=== PATIENT | male | born 1975 | race Caucasian/White ===

== ENCOUNTER 2024-08-25 10:06 | Emergency (ER) | payer OTHER, BC, SELFPAY ==
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
[2024-08-25 10:19] VITALS: BP 136/85; PULSE 71; RESP 18; TEMP 36.8; O2SAT 98
--- OUTSIDE RECORDS SUMMARY | 2024-08-25 10:45 | XMS_ITS | Clinical Summary ---
Author Organization [facility] Address [address] [place] [address] Care Team Providers Care Open Developer Operator Name Role Phone Lorne Phillips DO Primary Care Prov ider Allergies Active Allergy Reactions Criticality Noted Date Comments Amoxicillin Hives,Itching Medium 07/18/2020 Tingling Medications acetylcysteine 600 mg capsule Take daily as directed 0 Active alpha lipoic acid 600 mg tablet Take daily as directed 0 Active ascorbic acid (VITAMIN C) 1,000 mg tablet Take 1 tablet by mouth daily 0 Active cholecalciferol (VITAMIN D-3) 2000 unit capsule Take 1 capsule by mouth daily 0 Active magnesium oxide (MAG-OX) 415 mg (250 mg elemental) tablet Take 1 tab by oral route daily 1 Active milk wfqgxpy-OAJ-fyya el-turmer (Liver Complex) 250-250 mg tablet Take daily as directed 0 Active policosan-inosit ol niac-garlic (Policosanol-Gar lic-Niacin) 5-250-400 mg capsule Take daily as directed 0 Active policosanol combination no.3 30 mg tablet Take daily as directed 0 Active lidocaine (LIDODERM) 5 % Apply 1 patch topically daily for 10 days Remove after 12 hours (need 12 hour patch free period). 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 Gender Identity Not on file Sexual Orientation Not on file Obstetrics History Last Filed Vital Signs Vital Sign Reading Time Taken Comments Blood Pressure 144/99 04/25/2022 10:20 AM MIX MILL TENDER Pulse 102 04/25/2022 10:20 AM MIX MILL TENDER Temperature 36.5 C (97.7 F) 04/25/2022 10:20 AM MIX MILL TENDER Respiratory Rate 16 04/25/2022 10:20 AM MIX MILL TENDER Oxygen Saturation 94% 04/25/2022 10:20 AM MIX MILL TENDER Inhaled Oxygen Concentration - - Weight 136.1 kg (300 lb) 04/25/2022 10:20 AM MIX MILL TENDER Height 185.4 cm (6' 1 ) 04/25/2022 10:20 AM MIX MILL TENDER Body Mass Index 39.58 04/25/2022 10:20 AM MIX MILL TENDER Plan of Treatment Health Maintenance Due Date Last Done Comments Colon Cancer Screening-Colonoscopy 1973 Depression Screening 1973 Hepatitis C Screening 1973 Prostate Cancer Screening-PSA 1973 Hepatitis B Screening 11/26/1991 Regular Well Visit/Exam 18-64 11/26/1991 Zoster Vaccine (1 of 2) 11/26/2023 Influenza Vaccine (#1) 2024 8, 04/22/2015 DTaP/Tdap/Td Vaccine (2 - Td or Tdap) 04/22/2025 04/22/2015 Pneumococcal vaccine <65 Aged Out No longer eligible based on patient's age to complete this topic Insurance [facility] ACCESS CHOICE [employer] ACCESS CHOICE Member Subscriber Plan / Payer ( fective 2019-Present) Name:Jose Elias Sanchez Relation to Subscriber:Self Name:Jose Elias Sanchez Payer ID:[id number] ([facility]) Type:[employer]IANCE Address: [address] [place] [address] [employer] ACCESS CHOICE Care Teams Open Developer Operator Relationship Specialty Start Date End Date Lorne Phillips DO PCP - General 07/18/20
--- OUTSIDE RECORDS SUMMARY | 2024-08-25 10:45 | XMS_ITS | Clinical Summary ---
Author Organization [facility] Address [address] [place] [address] Care Team Providers Care Supply Planner Name Role Phone Unavailable Primary Care Provider Unavailabl e Source Comments [facility],non-owned Affiliates and Associated Physician Practices is amultiple site organization consisting of ambulatory clinics and hospital sitesin [place], [place], [place] and [place]. This disclosure is being madepursuant to the Care Everywhere program and may not contain all information available regarding this patient. Last updated 18.[facility] [employer] Active Problems Problem Noted Date Diagnosed Date Fatty liver 12/21/2023 Social History Tobacco Use Types Packs/Day Years Used Date Smoking Tobacco: Never Assessed Sex and Gender Information Value Date Recorded Sex Assigned at Not on file Gender Identity Not on file Sexual Orientation Not on file Plan of Treatment Health Maintenance Due Date Last Done Comments COLOGUARD (AGES 45-75) - COL ON CA SCREENING 1973 COLON MONITORING 1973 COLONOSCOPY - COLON CA SCREENING 1973 CT COLONOGRAPHY - COLON CA SCREENING 1973 Colorectal Cancer Screening 1973 FIT - COLON CA SCREENING 1973 FLEX SIG - COLON CA SCREENING 1973 LIPID TESTING 1973 HIV SCREENING 1988 HEPATITIS C SCREENING 11/21/1991 DTAP/TDAP/TD VACCINES (1 - Tdap) 1992 HEPATITIS B VACCINE (1 of 3 - 19+ 3-dose series) 1992 PNEUMOCOCCAL VACCINE 50+ (1 of 1 - PCV) 11/26/2023 ZOSTER VACCINE (1 of 2) 11/26/2023 COVID-19 VACCINE ( - 2023-2 5 season) 2024 INFLUENZA VACCINE (#1) 2024 DEPRESSION SCREENING 06/14/2024 HIB VACCINE Aged Out No longer eligi ble based on patient's age to complete this topic HPV VACCINE Aged Out No longer eligi ble based on patient's age to complete this topic MENINGOCOCCAL (Group B) VACC INE SHARED DECISION-MAKING Aged Out No longer eligibl e based on patient's age to complete this topic MENINGOCOCCAL GROUPS A/C/Y/W VACCINE Aged Out No longer eligible b ased on patient's age to complete this topic PNEUMOCOCCAL VACCINE Aged Out No long er eligible based on patient's age to complete this topic
--- OUTSIDE RECORDS SUMMARY | 2024-08-25 10:45 | XMS_ITS | Referral Summary ---
Author Organization [facility] Address [address] [place] [address] Care Team Providers Care Director Of Rooms Name Role Phone Unavailable Primary Care Provider Unavailabl e Source Comments [facility],non-owned Affiliates and Associated Physician Practices is amultiple site organization consisting of ambulatory clinics and hospital sitesin [place], [place], [place] and [place]. This disclosure is being madepursuant to the Care Everywhere program and may not contain all information available regarding this patient. Last updated 18.[facility] Active Problems Problem Noted Date Diagnosed Date Fatty liver 12/21/2023 Social History Tobacco Use Types Packs/Day Years Used Date Smoking Tobacco: Never Assessed Sex and Gender Information Value Date Recorded Sex Assigned at Not on file Gender Identity Not on file Sexual Orientation Not on file Plan of Treatment Not on file
--- OUTSIDE RECORDS SUMMARY | 2024-08-25 10:45 | XMS_ITS | Encounter Summary ---
Author Organization [facility] Address [address] [place] [address] Care Team Providers Care Cs Associate Name Role Phone Lorne Phillips V. DO Primary Care Prov ider Neptali Briones MD Primary Care Provider [phone] Lorne Phillips V. 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 07/01/2021 07/07/2021 10/29/2021 3:05 AM C DT documented as of this encounter Care Teams Cs Associate Relationship Specialty Start Date End Date Lorne Phillips DO PCP - General 03/11/19 07/14/20 Neptali Briones MD [address] [place] [address] [place] [id number] PCP - General 07/15/20 07/17/20 Lorne Phillips DO PCP - General 07/18/20 documented as of this encounter
--- OUTSIDE RECORDS SUMMARY | 2024-08-25 10:45 | XMS_ITS | Patient Health Summary ---
Author Organization [facility] Address [address] [place] [address] Care Team Providers Care Gear Shaper Name Role Phone Unavailable Primary Care Provider Unavailabl e Note from [facility],non-owned Affiliates and Associated Physician Practices is amultiple site organization consisting of ambulatory clinics and hospital sitesin [place], [place], [place] and [place]. This disclosure is being madepursuant to the Care Everywhere program and may not contain all information available regarding this patient. Last updated 18.[facility] Active Problems Problem Noted Date Diagnosed Date Fatty liver 12/21/2023 Social History Tobacco Use Types Packs/Day Years Used Date Smoking Tobacco: Never Assessed Sex and Gender Information Value Date Recorded Sex Assigned at Not on file Gender Identity Not on file Sexual Orientation Not on file Procedures * RI LIVER ELASTOGRAPHY(Performed 12/21/2023) Performed for Fatty liver Results * PROC FIBROSCAN (12/21/2023 8:18 AM CDT) Narrative Elan Morales MD - 12/21/2023 8:18 AM CDT Elan Morales MD 12/21/2023 5:35 PM Diagnosis: Fatty liver RN verified patient is NPO for prior 3 hours. Procedure explained. Date of Exam: 12/21/2023 Liver Stiffness: (LSM, kPa) median: 7.3 IQR/Median% (ideally < 30%): 8% CAP (controlled attenuation parameter): 262 Technical Difficulty: None Ordering Provider: Dr. Aria Song MD Phone Fax Fibroscan interpretation: I have personally reviewed the Fibroscan report and associated tracings. The calculated Liver Stiffness Measurement (LSM, kPa) indicates that: The probability of advanced liver fibrosis is: low to moderate. The loss of ultrasound signal, (controlled attenuation parameter, CAP [dB/m]), indicates that the probability of hepatic steatosis is: moderate. Elan Payne MD The following criteria are used to indicate the probability of advanced (stage 3-4) fibrosis: < 7.0 kPa: low 7.0-8.9 kPa: low to moderate 9.0-14.9 kPa: moderate 15-20 kPa: high > 20 kPa: very high Liver stiffness > 20 kPa is also associated with a high probability of complications of portal hypertension including varices and ascites. Liver stiffness > 50 kPa is associated with a high risk of variceal bleeding. These interpretations are based on the following published data: Prachi PJ, Ama M, Naz M, et al. Accuracy of FibroScan controlled attenuation parameter and liver stiffness measurement in assessing steatosis and fibrosis in patients with nonalcoholic fatty liver disease. Gastroenterology 2019;156:1566-2209. Natalio DAVID, Ana R, Van Natta ML, et al. Vibration-controlled transient elastography to assess fibrosis and steatosis in patients with nonalcoholic fatty liver disease. Clin Gastroenterol Hepatol 2019;17:156-163. Note that scores have been developed that incorporate the Fibroscan liver stiffness measurement from large cohorts of patients with liver biopsies to further refine the ability of Fibroscan to identify patients with MASH and advanced fibrosis. These include the FAST (Fibroscan-AST) score (Richard, 2022) and the Agile3+ and Agile4 scores (Kaur, 202). Richard TA, Van Natta ML, Quiana M, Shailesh A, et al. Validation of the accuracy of the FAST score for detecting patients with at-risk nonalcoholic steatohepatitis (BARRON) in a [place] cohort and comparison to other non-invasive algorithms. PLoS ONE (2021) 17: [id number]. Kaur MENDIETA, Jack J, Christine HIGHTOWER, et al. Enhanced diagnosis of advanced fibrosis and cirrhosis in individuals with NAFLD using FibroScan-based Agile scores. J Hepatol (2022) 78: 247-259. Fibroscan LSM can also be used with laboratory parameters without formulas to assess prognosis. According to the Baveno-VII criteria (Childers, 2022), Fibroscan LSM ?15 kPa plus a platelet count of ?167p820/L rules out clinically significant portal hypertension (sensitivity and negative predictive value >90%) in patients with compensated advanced chronic liver disease. Childers R, Marquita J, Osorio G, Cecilia T, Dalila Conde on behalf of the [facility] VII Faculty. [facility] VII--Renewing consensus in portal hypertension. J Hepatol (2021) 76: 959-974 Assessing the likelihood of advanced fibrosis in patients with intermediate liver stiffness measurement (LSM) by Fibroscan (e.g., 8-15 kPa) can be improved by also calculating the FIB-4 score (Jayeshuke et al. Hepatology Communications 2019;3:4333-6513) or NAFLD Fibrosis score (Tang et al. Clinical Gastroenterology and Hepatology 2019;17:0133-6629 using routine clinical data. Note: 1. Fibroscan cannot reliably identify earlier stages of fibrosis (ie distinguish F0 from F1 and F2) and thus a histologic stage cannot be predicted from the Fibroscan reading. 2. Liver stiffness can be increased by factors other than fibrosis including passive congestion, infiltrative processes, active alcoholism, recent moderate alcohol consumption in the 2 weeks before the exam, biliary obstruction and marked inflammation. The interpretation of the Fibroscan result provided above may not have taken such clinical factors into account. Disease etiology also influences Fibroscan cutoff values for fibrosis stages and the following cutoffs have been proposed (Connor et al, Clin Gastro Hepatol 2015; 13:27-36): Cutoffs for Stage 3 and Stage 4 fibrosis respectively: Hepatitis B: >9 and >11.7 kPa Hepatitis C: >9.5 and >12.5 kPa HCV-HIV: >11 and >14 kPa Cholestatic liver diseases: >10 and >17.9 kPa MASLD/MASH: >10 and >14 kPa CAP estimates of steatosis: normal <200 dB/m mild 200 to 250 dB/m moderate 250-290 dB/m substantial > 290 dB/m (Note that Fibroscan is not a quantitative measure of liver fat.) These criteria are estimates and may change as additional supporting data becomes available. (This additional interpretive data was last updated 10/17/22.) [email or web address] Aria Song MD PROCEDURE/MINOR SURG ICAL ORDERABLES
--- OUTSIDE RECORDS SUMMARY | 2024-08-25 10:45 | XMS_ITS | Referral Summary ---
Author Organization 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 Gender Identity Not on file Sexual Orientation Not on file Last Filed Vital Signs Vital Sign Reading Time Taken Comments Blood Pressure 144/99 04/25/2022 10:20 AM TOOLS ADMINISTRATOR Pulse 102 04/25/2022 10:20 AM TOOLS ADMINISTRATOR Temperature 36.5 C (97.7 F) 04/25/2022 10:20 AM TOOLS ADMINISTRATOR Respiratory Rate 16 04/25/2022 10:20 AM TOOLS ADMINISTRATOR Oxygen Saturation 94% 04/25/2022 10:20 AM TOOLS ADMINISTRATOR Inhaled Oxygen Concentration - - Weight 136.1 kg (300 lb) 04/25/2022 10:20 AM TOOLS ADMINISTRATOR Height 185.4 cm (6' 1 ) 04/25/2022 10:20 AM TOOLS ADMINISTRATOR Body Mass Index 39.58 04/25/2022 10:20 AM TOOLS ADMINISTRATOR Plan of Treatment Not on file Insurance [employer] CHOICE [facility] ACCESS CHOICE Care Teams Unit Coordinator Relationship Specialty Start Date End Date Lorne Phillips DO PCP - General 07/18/20
--- OUTSIDE RECORDS SUMMARY | 2024-08-25 10:45 | XMS_ITS | Clinical Summary ---
Author Organization [facility] Address [address] [place] [id number] Care Team Providers Care Imager Name Role Phone Neptali Briones MD Primary Care Provider [phone] Social History Tobacco Use Types Packs/Day Years Used Date Smoking Tobacco: Never Assessed Sex and Gender Information Value Date Recorded Sex Assigned at Not on file Legal Sex Male 8:02 PM CDT Gender Identity Not on file Sexual Orientation Not on file Plan of Treatment Health Maintenance Due Date Last Done Comments Colorectal Cancer Screening Colonoscopy (10 Years) 1973 Annual Physical 1976 Hepatitis C 11/26/1991 DTaP, Tdap and Td Vaccines ( 1 - Tdap) 1992 Hepatitis B Vaccines (1 of 3 - 19+ 3-dose series) 1992 Zoster Vaccines (1 of 2) 11/26/2023 COVID-19 Vaccine ( - 2023-2 5 season) 2024 Influenza Adult (#1) 2024 Meningococcal B Vaccine Aged Out No l onger eligible based on patient's age to complete this topic Meningococcal Vaccine Aged Out No dimitri gaby eligible based on patient's age to complete this topic Pneumococcal Vaccine: Pediat rics (0 to 5 Years) and At-Risk Patients (6 to 64 Years) Aged Out No longer eligible b ased on patient's age to complete this topic RSV Immunizations Under 20 Months Aged Out No longer eligible based on patient's age to complete this topic Care Teams Imager Relationship Specialty Start Date End Date Neptali Briones MD PCP - General 10/01/15
== END 2024-08-25 10:36 | disposition home or self-care (01) ==
PROVIDERS: Emergency Provider Nurse Practitioner; PCP Family Medicine
DX: S39.012A Strain of muscle, fascia and tendon of lower back, initial encounter (principal); V43.52XA Car driver injured in collision with other type car in traffic accident, initial encounter; R51.9 Headache, unspecified
CPT/HCPCS: 99213; G0463

== ENCOUNTER 2025-04-03 17:42 | Emergency (ER) | payer BC, SELFPAY ==
[2025-04-03 17:55] VITALS: BP 152/75; PULSE 78; RESP 20; TEMP 36.5; O2SAT 97
--- NOTE | 2025-04-03 18:04 | ED_ITS ---
HPI - URI/Sore Throat General Chief Complaint: Upper Respiratory Infection Stated Complaint: Scratchy throat Time Seen by Provider: 04/03/25 18:04 Source: patient and RN notes reviewed Mode of arrival: ambulatory Limitations: no limitations History of Present Illness HPI Narrative: 49-year-old male presents with concern for 1 day history of scratchy throat and feeling run down. Reports mild cough nasal drainage. Reports both of his children were diagnosed with strep today MD elicited complaint: sore throat Related Data Allergies Allergy/AdvReac Type Severity Reaction Status Date / Time amoxicillin Allergy Mild Rash Verified 04/03/25 17:49 Review of Systems Review of Systems: CONSTITUTIONAL: Reports malaise. Denies chills, sweats, or fever. EYES: Denies visual changes, redness, or discharge. ENT: Reports rhinorrhea, sore throat. Denies congestion, sinus pain, otalgia CARDIOVASCULAR: Denies chest pain, palpitations, or edema. RESPIRATORY: Reports mild cough. Denies dyspnea. GASTROINTESTINAL: Denies abdominal pain, nausea, vomiting, diarrhea SKIN: Denies rash or itching. MUSCULOSKELETAL: Denies myalgia. NEUROLOGIC: Denies headache. All systems reviewed & are unremarkable except as noted in HPI and below PMFSH Comments At time of signature, agree with nursing past medical, surgical, social and family history. There is no relevant family history pertinent to the presenting complaint Exam Narrative: GENERAL: Well-appearing, well-nourished, and in no acute distress. HEAD: Normocephalic EYES: PERRLA, conjunctivae clear ENT: Nares clear. Mucous membranes moist. TM pearly waite with dull light reflex bilaterally; no tragal tenderness. Oropharynx erythematous without lesions. Tonsils not enlarged and without exudate, no drooling, no hoarseness, no trismus, uvula midline. NECK: Supple. No lymphadenopathy CHEST: Clear to auscultation, breath sounds equal. No wheezing, rhonchi, rales, or stridor. No respiratory distress, speaks in full sentences. HEART: Regular rate and rhythm. No murmur heard. SKIN: Warm, dry, no rash. NEURO: Alert and oriented x3. PSYCH: Normal mood and affect Course Course Emergency Course: Patient is aware of diagnosis, understands and agrees to treatment plan. Anticipatory guidance given. Patient agrees to follow-up as directed and is aware of reasons to seek care at the emergency department. Portions of this record may have been created with voice recognition software Level of Care: Express Care Visit Vital Signs Vital signs: Vital Signs Temperature 97.7 F 04/03/25 17:55 Pulse Rate 78 04/03/25 17:55 Respiratory Rate 20 04/03/25 17:55 Blood Pressure 152/75 H 04/03/25 17:55 Pulse Oximetry 97 04/03/25 17:55 Oxygen Delivery Room Air 04/03/25 17:55 Temperature 97.7 F 04/03/25 17:55 Pulse Rate 78 04/03/25 17:55 Respiratory Rate 20 04/03/25 17:55 Blood Pressure 152/75 H 04/03/25 17:55 Pulse Oximetry 97 04/03/25 17:55 Oxygen Delivery Room Air 04/03/25 17:55 Reviewed. MDM - URI/Sore Throat MDM Narrative Medical decision making narrative: Differential diagnosis considered: Bro virus, strep pharyngitis, allergic rhinitis, upper respiratory tract infection, sinusitis, rhinosinusitis, nasopharyngitis. viral pharyngitis, otitis media, otitis externa, pneumonia, bronchitis, viral cough syndrome, viral syndrome, and influenza. Exam findings show no acute concerns or changes; patient is non-toxic appearing and is in no distress. Patient is appropriate for outpatient treatment and follow-up. Lab Data Attestation: I reviewed the patient's lab results. Critical Care Time Critical Care Time Critical Care Time: No Discharge Plan Discharge Clinical Impression: Pharyngitis, Exposure to strep throat Patient Disposition: Home Condition: Stable Instructions: Antibiotic Form, Strep Throat (ED) Additional Instructions: -Take the medication as prescribed. Throw away the toothbrush after 24hours of antibiotic. -Eat and drink things that are easy to swallow, like tea or soup, or popsicles to suck on. -Oral rinses such as: Salt water gargles and/or may use topical anesthetic (eg. Chloraseptic spray) or lozenges to relieve dryness or throat pain). -Take Tylenol and ibuprofen as needed for pain and fever as directed. -Frequent hand washing or hand engineering production liaison is one of the best ways to prevent spread of infection. -Follow up with primary care provider in 2-3 days if condition is not improving; or seek ER visit if you have trouble breathing, cannot drink enough fluids, have muffled voice, difficulty opening your mouth, or severe swelling. Patient Language: Chinese Prescriptions: New azithromycin [Zithromax Z-Jhon] 250 mg tablet See Rx Instructions .ROUTE .COMPLEX Qty: 6 0RF Rx Instructions: take 500 mg today (day 1), then 250 mg for 4 days (days 2-5) Follow-up/Referrals: UNKNOWN,DOCTOR [Primary Care Provider] Time of Disposition: 18:09
[2025-04-03 18:05] LABS: EDSTREPNEGPOS1 Negative (Negative)
--- OUTSIDE RECORDS SUMMARY | 2025-04-03 19:56 | XMS_ITS | Clinical Summary ---
Author Organization [facility] Address [address] [address] Care Team Providers Care Director Law Enforcement Name Role Phone Provider, No Pcp Primary Care Provider Unavailab le Source Comments [facility],non-owned Affiliates and Associated Physician Practices is amultiple site organization consisting of ambulatory clinics and hospital sitesin [place], [place], [place] and [place]. This disclosure is being madepursuant to the Care Everywhere program and may not contain all information available regarding this patient. Last updated 18.[facility] Active Problems Problem Noted Date Diagnosed Date Fatty liver 12/21/2023 Encounters Date Type Department Care Team Description 01/02/2025 8:00 AM CDT Procedure visit [facility] - GI [address] [place] [address] Elan Segundo MD NAFLD (nonalcoholic fatty liver disease) 01/02/2025 Travel 01/02/2025 Orders Only [facility] - GI [address] [place] [address] Elan Segundo MD Fatty liver from Last 3 Months Social History Tobacco Use Types Packs/Day Years Used Date Smoking Tobacco: Never Assessed Sex and Gender Information Value Date Recorded Sex Assigned at Not on file Legal Sex Male 10:05 AM CDT Gender Identity Not on file Sexual Orientation Not on file Plan of Treatment Health Maintenance Due Date Last Done Comments COLOGUARD (AGES 45-75) - COLON CA SCREENING 1973 COLON MONITORING 1973 COLONOSCOPY - COLON CA SCREENING 1973 CT COLONOGRAPHY - COLON CA SCREENING 1973 Colorectal Cancer Screening 1973 FIT - COLON CA SCREENING 1973 FLEX SIG - COLON CA SCREENING 1973 HIV SCREENING 1988 HEPATITIS C SCREENING 11/21/1991 DTAP/TDAP/TD VACCINES (1 - Tdap) 1992 HEPATITIS B VACCINE (1 of 3 - 19+ 3-dose series) 1992 PNEUMOCOCCAL VACCINE 50+ (1 of 1 - PCV) 11/26/2023 ZOSTER VACCINE (1 of 2) 11/26/2023 DEPRESSION SCREENING 06/14/2024 COVID-19 VACCINE (1 - 2023- season) 2025 INFLUENZA VACCINE (#1) 2025 LIPID TESTING 08/16/2029 08/16/2024, 07/15, 12/22/2021, Additional history exists HIB VACCINE Aged Out No longer eligi ble based on patient's age to complete this topic HPV VACCINE Aged Out No longer eligi ble based on patient's age to complete this topic MENINGOCOCCAL (Group B) VACCINE SHARED DECISION-MAKING Aged Out No longer eligible based on patient's age to complete this topic MENINGOCOCCAL GROUPS A/C/Y/W VACCINE Aged Out No longer eligible based on patient's age to complete this topic Procedures Procedure Name Priority Date/Time Associated Diagnosis Comments MD LIVER ELASTOGRAPHY Routine 01/02/2025 8:02 AM CDT Fatty liver from Last 3 Months Results * MD LIVER ELASTOGRAPHY (01/02/2025 8:02 AM CDT) Narrative Elan Morales MD - 01/02/2025 8:02 AM CDT Elan Morales MD 01/02/2025 10:19 PM Diagnosis: Fatty Liver RN verified patient is NPO for prior 3 hours. Procedure explained. Date of Exam: 01/02/2025 Liver Stiffness: (LSM, kPa) median: 14.5 IQR/Median% (ideally < 30%): 114% CAP (controlled attenuation parameter): 316 Technical Difficulty: Difficulty obtaining results due to body habitus. Pt reports loss of weight with increased body mass index due to exercise. BMI 40.8 per pt phone fe. Procedure took 2 nurses 40 min to complete. Unable to do any additional testing due to c/o cramping. Ordering Provider: Aria Song MD Fibroscan interpretation: I have personally reviewed the Fibroscan report and associated tracings. The calculated Liver Stiffness Measurement (LSM, kPa) indicates that: The probability of advanced liver fibrosis is: not assessable with Fibroscan likely related to body habitus. The loss of ultrasound signal, (controlled attenuation parameter, CAP [dB/m]), indicates that the probability of hepatic steatosis is: high. Elan Payne MD The following criteria are used to indicate the probability of advanced (stage 3-4) fibrosis: < 7.0 kPa: low 7.0-8.9 kPa: low to moderate 9.0-14.9 kPa: moderate 15-20 kPa: high > 20 kPa: very high Liver stiffness > 12 kPa is associated with an increased risk of cirrhosis-related complications over the next 3-5 years (Boboomier, 2022). Liver stiffness > 20 kPa is also associated with a high probability of complications of portal hypertension including varices and ascites. Liver stiffness > 50 kPa is associated with a high risk of variceal bleeding. These interpretations are based on the following published data: Amanda J, Hagstr m H, Ekstedt M, Charlotte C, Bonacci M, Cure S, Ampuero J, Nasr P, Tallab L, Canivet CM, Kechagias S, S nchez Y, Dincuff E, Ashu A, Mitch M, Riorichi J, Cosme A and Prescott-Simon M. Non-invasive tests accurately stratify patients with NAFLD based on their risk of liver-related events. J Hepatol (2021) 76: 8627-0919. Prachi GROVER, Ama M, Naz M, et al. Accuracy of FibroScan controlled attenuation parameter and liver stiffness measurement in assessing steatosis and fibrosis in patients with nonalcoholic fatty liver disease. Gastroenterology 2019;156:5876-2336. Natalio MS, Ana R, Van Nadia ML, et al. Vibration-controlled transient elastography to [...] These include the FAST (Fibroscan-AST) score (Richard, 2021) and the Agile3+ and Agile4 scores (Kaur, 2022; Lorraine, 2023). Richard TA, Van Natprasanna ML, Quiana M, Shailesh A, et al. Validation of the accuracy of the FAST score for detecting patients with at-risk nonalcoholic steatohepatitis (BARRON) in a [place] cohort and comparison to other non-invasive algorithms. PLoS ONE (2021) 17: x5126314. Kaur AJ, Jack J, Christine ZM, et al. Enhanced diagnosis of advanced fibrosis and cirrhosis in individuals with NAFLD using FibroScan-based Agile scores. J Hepatol (2022) 78: 247-259. Lorraine et al. Vibration-controlled transient elastography scores to predict liver-related events in steatotic liver disease. AGUSTIN (2023) 331: 9016-5825 Fibroscan LSM can also be used with laboratory parameters without formulas to assess prognosis. According to the Baveno-VII criteria (Childers, 202), Fibroscan LSM <=15 kPa plus a platelet count of >=[id number]/L rules out clinically significant portal hypertension (sensitivity and negative predictive value >90%) in patients with compensated advanced chronic liver disease. Childers R, Marquita J, Adan-Shun G, Cecilia T, Dalila C on behalf of the Baveno VII Faculty. Baveno VII--Renewing consensus in portal hypertension. J Hepatol (2021) 76: 959-974 Assessing the likelihood of advanced fibrosis in patients with intermediate liver stiffness measurement (LSM) by Fibroscan (e.g., 8-15 kPa) can be improved by also calculating the FIB-4 score (Ronnie et al. Hepatology Communications 2019;3:4200-9899) or NAFLD Fibrosis score (Tang et al. Clinical Gastroenterology and Hepatology 2019;17:2431-5747 using routine clinical data. Notes: 1. Fibroscan cannot reliably identify earlier stages [...] have taken such clinical factors into account. 3. Identifying steatosis by an elevated CAP score (> 250 db/m) is useful for establishing a diagnosis of steatotic liver disease. However the severity of steatosis does not correlate with liver related outcomes. Disease etiology also influences Fibroscan cutoff values [...] (This additional interpretive data was last updated 06/16/24.) [email or web address] Elan Morales MD PROCEDURE/MINOR MICHELLE RGICAL ORDERABLES Final Result from Last 3 Months Insurance [employer] Care Teams Director Law Enforcement Relationship Specialty Start Date End Date Provider, No Pcp PCP - General 12/20/24
--- OUTSIDE RECORDS SUMMARY | 2025-04-03 19:56 | XMS_ITS | Clinical Summary ---
Author Organization [facility] Address [address] [place] [address] Care Team Providers Care Polish Compounder Name Role Phone Neptali Briones MD Primary Care Provider [phone] Social History Tobacco Use Types Packs/Day Years [...] of 3 - 19+ 3-dose series) 1992 Pneumococcal Vaccine: 50+ Ye ars (1 of 1 - PCV) 11/26/2023 Zoster Vaccines (1 of 2) 11/26/2023 COVID-19 Vaccine ( - 2023-2 5 season) 2025 Influenza Adult (#1) 2025 Hepatitis A Vaccines Aged Out No long er eligible based on patient's age to complete this topic Meningococcal B Vaccine Aged Out No l onger eligible based on patient's age to complete this topic Meningococcal Vaccine Aged Out No dimitri gaby eligible based on patient's age to complete this topic RSV Immunizations Under 20 Months Aged Out No longer eligible based on patient's age to complete this topic Care Teams Polish Compounder Relationship Specialty Start Date End Date Neptali Briones MD PCP - General 10/01/15
--- OUTSIDE RECORDS SUMMARY | 2025-04-03 19:56 | XMS_ITS | Clinical Summary ---
Author Organization [facility] Address [address] [place] [address] Care Team Providers Care Vibrator Equipment Tester Name Role Phone Lorne Phillips DO Primary [...] by oral route daily 1 Active milk ckvnpml-HEH-jpoe el-turmer (Liver Complex) 250-250 mg tablet Take [...] on file Legal Sex Male 8:53 PM SEGMENT ASSEMBLER Gender Identity Not on file Sexual Orientation Not on file Obstetrics History Last Filed Vital Signs Vital Sign Reading Time Taken Comments Blood Pressure 144/99 04/25/2022 10:20 AM SEGMENT ASSEMBLER Pulse 102 04/25/2022 10:20 AM SEGMENT ASSEMBLER Temperature 36.5 C (97.7 F) 04/25/2022 10:20 AM SEGMENT ASSEMBLER Respiratory Rate 16 04/25/2022 10:20 AM SEGMENT ASSEMBLER Oxygen Saturation 94% 04/25/2022 10:20 AM SEGMENT ASSEMBLER Inhaled Oxygen Concentration - - Weight 136.1 kg (300 lb) 04/25/2022 10:20 AM SEGMENT ASSEMBLER Height 185.4 cm (6' 1) 04/25/2022 10:20 AM SEGMENT ASSEMBLER Body Mass Index 39.58 04/25/2022 10:20 AM SEGMENT ASSEMBLER Plan of Treatment Health Maintenance Due Date Last Done Comments Colon Cancer Screening-Colonoscopy 1973 Depression Screening 1973 Hepatitis C Screening 1973 Prostate Cancer Screening-PSA 1973 Hepatitis B Screening 11/26/1991 Regular Well Visit/Exam 18-64 11/26/1991 Zoster Vaccine (1 of 2) 11/26/2023 Influenza Vaccine (#1) 2025 8, 04/22/2015 DTaP/Tdap/Td Vaccine (2 - Td or Tdap) 04/22/2025 04/22/2015 Pneumococcal vaccine <65 Aged Out No longer eligible based on patient's age to complete this topic Insurance [facility] ACCESS CHOICE [employer] CHO[employer] Care Teams Vibrator Equipment Tester Relationship Specialty Start Date End Date Lorne Phillips DO PCP - General 07/18/20
--- OUTSIDE RECORDS SUMMARY | 2025-04-03 19:56 | XMS_ITS | Encounter Summary ---
Author Organization [facility] Address [address] [place] [address] Care Team Providers Care Scrap Wheeler Name Role Phone Lorne Phillips V. DO Primary Care Prov ider Neptali Briones MD Primary Care Provider [phone] Lorne Phillips V. DO Primary Care Prov ider Encounter Details Date Type Department Care Team (Late st Contact Info) Description 12/10/2017 Imaging Exam [facility] Health Information Management [address] [place] [address] Calin Nunes MD [facility] [address] [place] [address] Social History Tobacco Use Types Packs/Day Years Used Date Smoking Tobacco: Never Assessed Sex and Gender Information Value Date Recorded Sex Assigned at Not on file Legal Sex Male 8:53 PM HAND FRETTED INSTRUMENT MAKER Gender Identity Not on file Sexual Orientation Not on file documented as of this encounter Plan of Treatment Not on file documented as of this encounter Visit Diagnoses Not on filedocumented in this encounter Additional Health Concerns Infection Onset Date Last Indicated Resolved Time COVID: Suspected 06/15/2021 06/15/2021 06/15/2021 2:42 PM HAND FRETTED INSTRUMENT MAKER COVID: Suspected 06/17/2021 06/17/2021 06/17/2021 9:55 PM HAND FRETTED INSTRUMENT MAKER COVID19 06/17/2021 06/17/2021 07/01/2021 3:05 AM HAND FRETTED INSTRUMENT MAKER COVID: Recovered Comment:Added based on recent COVID infection. 07/01/2021 07/07/2021 10/29/2021 3:05 AM C DT documented as of this encounter Care Teams Scrap Wheeler Relationship Specialty Start Date End Date Lorne Phillips DO PCP - General 03/11/19 07/14/20 Neptali Briones MD [address] [facility] [address] [place] [id number] PCP - General 07/15/20 07/17/20 Lorne Phillips DO PCP - General 07/18/20 documented as of this encounter
== END 2025-04-03 18:11 | disposition home or self-care (01) ==
PROVIDERS: Emergency Provider Nurse Practitioner
DX: J02.9 Acute pharyngitis, unspecified (principal)
CPT/HCPCS: 87081; 87880; 99213; G0463